=== PATIENT | female | born 1960 | race Caucasian/White ===

== ENCOUNTER 2020-10-31 11:42 | Day surgery (SDC) | payer BC, SELFPAY ==
[2020-10-31] VITALS (14 sets, daily range): BP systolic 118–165; BP diastolic 72–91; PULSE 51–91; RESP 12–18; TEMP 36.4; O2SAT 93–100
[2020-10-31 13:46] LABS: Coronavirus 19 IgG Antibody Negative (Negative); Coronavirus 19 IgM Antibody Negative (Negative)
--- NOTE | 2020-10-31 14:00 | FL_ITS ---
PROCEDURE: FL ERCP CLINICAL INDICATION: right upper quadrant pain COMPARISON: No exams were available for comparison FINDINGS: Fluoroscopy time: 1 minutes and 56 seconds Two images are submitted showing the endoscope in place with a catheter within the common bile duct with partial filling of the common bile duct which appear dilated measuring approximately 12 mm. Surgical clips are present from prior cholecystectomy. No obvious filling defects evident however, the common bile duct was incompletely opacified on the images submitted. IMPRESSION: Prior cholecystectomy with dilated common bile duct Dictated by: Len Concepcion MD 11/02/2020 09:01 eLn Concepcion MD in [place] 11/02/2020 09:01
--- NOTE | 2020-10-31 14:37 | P.PCN_ITS ---
[facility] Procedure Note Procedure Note:: ERCP procedure Report: Endoscopic retrograde cholangiopancreatography with biliary sphincterotomy and balloon extraction Endoscopist: Raul Calvillo II, MD Referring Physician: Monica Travis MD ([facility]) Date of Procedure: October 31, 2020 Equipment: Olympus 180 side viewing endoscope duodenoscope Sedation: MAC sedation Indication: Mrs. Garner is a 60-year-old female with right upper quadrant abdominal pain and some epigastric discomfort. She previously has been to the emergency department and had cardiac evaluation and negative EKG and chest x-ray as well as normal cardiac troponins. She was placed on Carafate. The patient has had some elevated liver chemistries in the past that resolved. She also had a dilated common bile duct at 12 mm. She did have cholecystectomy in 2007. She has not had ERCP. She does report belching and gassiness with some loose bowel movements. She did have a colonoscopy in May 2017 and had a single sigmoid polyp (mucosal prolapse polyp) removed. Procedure: Prior to the procedure, a history and physical exam was performed, and patient's medications and allergies were reviewed. The risks, benefits and alternatives of the sedation and procedure were discussed with the patient. All questions were answered and informed consent was obtained. The patient was brought to the fluoroscopic radiology room. Patient identification and proposed procedure were verified by the physician and the nurse. The patient was placed in a swimmer's position between left lateral decubitus and prone position and the scope was passed under direct vision. Throughout the procedure, the patient's blood pressure, pulse, and oxygen saturations were monitored continuously. The ERCP was accomplished without difficulty. The patient tolerated the procedure well. Findings: The side-viewing duodenal scope was passed directly into the upper esophagus and advanced to the second portion of the duodenum. The esophagus, stomach and duodenum were grossly normal. The ampulla was well visualized. The common bile duct was selectively cannulated with a guidewire. The cholangiogram did show a dilated biliary tree with maximal CBD diameter of 11 to 12 mm (normal less than 6 mm). There was no discrete filling defect. There was a normal cystic duct stump. The intrahepatic biliary system appeared to be normal. There was no drainage of contrast or bile identified. Next, a biliary sphincterotomy was performed for presumptive sphincter of Oddi dysfunction. There was excellent decompression of the biliary system and extravasation of bile and contrast. There was also some heme/some venous bleeding at the sphincterotomy site. 5 to 6 mL of 1-10,000 epinephrine was injected at sphincterotomy site submucosally to obtain complete hemostasis and the balloon was then swept through the biliary system and used as additional tamponade (sweeping balloon at 12 mm) for 2 minutes. There was passage of bond bile and no debris. The pancreatic duct was not cannulated intentionally. The patient was given Indocin suppository subsequent to ERCP for prophylaxis. Impression: 1. 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 I would avoid aspirin/NSAIDs for 10 days. The patient should have clinical improvement of her right upper quadrant abdominal pain.
--- NOTE | 2020-10-31 14:56 | HMH.ANESCL ---
[facility] Anesthesia Checklist - Patient Identification Patient Identification: Arm Band, Verbal (Name & ) - Structural Data Admitted From: Home Planned Operative Procedure/s: ERCP Consent for Planned Operative Procedure(s) Verified: Yes Verified Documents: Surgical Consent, History and Physical - NPO Status Verified Time NPO: 00:00 - Chart Verification Results Verified: None - Additional verifications Anesthesia Reactions: No - Airway Assessment C-Spine Mobility Assessed: Yes TMJ Mobility Assessed: Yes Dentition: Good Dentition (implants) - Neurological Assessment Level of Consciousness: Awake, Alert, Appropriate, Follows Commands Hx Seizures: No Numbness or tingling in extremities: No - Anesthesia Plan Anesthesia Risk discussed: Yes Anesthesia Plan: Verified ASA Class: II Anesthesia Type: MAC [facility] History I have reviewed the patient's past medical history: Yes Medical History: Reports:: Anxiety, Depression, Gastroesophageal Reflux Disease(GERD) Denies:: Cancer, Diabetes Mellitus Type 1, Diabetes Mellitus Type 2, Internal Pacemaker, MRSA, Seizures *Have you ever received a pneumonia vaccine?: Yes *Have you received a flu vaccine this season?: Yes Other Medical History: Reports: Liver Disease (fatty liver) Comment:: obesity Anesthesia experience/problems:: None Laterality Cases: Left: Arthroscopy Shoulder, Bilateral: Tonsillectomy, Total Knee Replacement Other Surgeries: No: Pacemaker Amputation: No - *Social History Last grade of school completed: Some college Smoking Status: Former smoker Alcohol Intake: never Substance Use Type: denies use *Occupational Status:: retired, disabled Housing: house *Travel in the last 8 weeks: [facility] the [facility] Family Hx:: Cancer
--- NOTE | 2020-10-31 17:09 | SUR.PHASEII ---
While assisting patient to get up to get dressing patient reported feeling spasm/pressure- like pain in her mid epigastric region. Notified Dr. Calvillo of pain and elevated blood pressure. MD ordered Bentyl 10mg & 5ml. This was then given to patient. Patient was assisted to bathroom via wheelchair after she reported a decrease in pain. Blood pressure returned to pre-op baseline prior to discharge. Patient reported pain had subsided at time of discharge. No s/s of distress. VSS
== END 2020-10-31 17:09 | disposition home or self-care (01) ==
PROVIDERS: PCP Internal Medicine; Visit Provider Internal Medicine Gastroenterology
PROC: (CPT 43262; principal; 2020-10-31 14:30)
DX: Z86.010 Personal history of colon polyps (principal); K83.8 Other specified diseases of biliary tract; K76.0 Fatty (change of) liver, not elsewhere classified; F41.9 Anxiety disorder, unspecified; F32.9 Major depressive disorder, single episode, unspecified; K21.9 Gastro-esophageal reflux disease without esophagitis; Z79.899 Other long term (current) drug therapy
CPT/HCPCS: 43262; 43264; 36415; 74330; 86328; J2405